=== PATIENT | female | born 1995 | race Caucasian/White ===

== ENCOUNTER 2020-04-11 10:03 | Inpatient (IN) | payer BC ==
[2020-04-08 09:34] VITALS: BMI 42.9
[2020-04-11] MEDS ORDERED: CITRIC ACID-SODIUM CITRATE 15 ML CUP PO ONE (10:18)
[2020-04-11 10:41] LABS: Basophils % (A) 0 %; Eosinophils # (A) 0.1 k/uL (0-0.7); Eosinophils % (A) 1 %; HCT 35.9 % (34.0-46.0); HGB 11.2 gm/dL (11.4-16.0); Hypochromasia Moderate; Lymphocytes # (A) 1.5 k/uL (1.0-4.8); Lymphocytes % (A) 17 %; MCH 23.9 pg (25.0-35.0); MCHC 31.3 g/dL (31.0-37.0); MCV 76.2 fL (80.0-100.0); Mean Platelet Volume 7.3; Microcytosis Slight; Monocytes # (A) 0.4 k/uL (0-1.0); Monocytes % (A) 4 %; Neutrophils # (A) 6.7 k/uL (1.3-7.7); Neutrophils % (A) 77 %; Platelet Count 353 k/uL (150-450); Poikilocytosis Slight; RBC 4.71 m/uL (3.80-5.40); RDW 15.4 % (11.5-15.5); WBC 8.8 k/uL (3.8-10.6)
[2020-04-11] MEDS: LACTATED RINGERS 1,000 ML IV SCH ×2 (11:00→23:14)
[2020-04-11] MEDS ORDERED: OXYTOCIN 10 UNIT/ML 1 ML VIAL ONE (12:00)
[2020-04-11] MEDS ORDERED: KETOROLAC 30 MG/ML 1 ML VIAL ONE (12:00)
[2020-04-11] MEDS ORDERED: PHENYLEPHRINE-0.9% NACL SYG 1 MG/10 ML SYRINGE ONE (12:00)
[2020-04-11] MEDS ORDERED: ONDANSETRON 4 MG/2 ML VIAL ONE (12:00)
[2020-04-11] MEDS ORDERED: MORPHINE SULFATE (PF) 0.3 MG/0.3 ML SYR ONE (12:00)
[2020-04-11] MEDS ORDERED: ACETAMINOPHEN TAB 325 MG TAB PO PRN (12:48)
[2020-04-11] MEDS ORDERED: ZOLPIDEM 5 MG TAB PO PRN (12:48)
[2020-04-11] MEDS ORDERED: diphenhydrAMINE 50 MG/ML 1 ML VIAL IVP PRN ×2 (12:48)
[2020-04-11] MEDS ORDERED: diphenhydrAMINE 25 MG CAP PO PRN (12:48)
[2020-04-11] MEDS ORDERED: NALOXONE 0.4 MG/ML 1 ML VIAL IV PRN (12:48)
[2020-04-11] MEDS ORDERED: METOCLOPRAMIDE 5 MG/ML 2 ML VIAL IVP PRN (12:48)
[2020-04-11] MEDS ORDERED: MEASLES-MUMPS-RUBELLA VACC/PF 12,500 UNIT/0.5 ML VIAL SQ ONE (12:48)
[2020-04-11] MEDS ORDERED: ONDANSETRON 4 MG/2 ML VIAL IVP PRN (12:48)
--- NOTE | 2020-04-11 12:52 | P.HPOB ---
History of Present Illness H&P Date: 04/11/20 Chief Complaint: Intrauterine at term: Macrosomia Patient is a 24-year-old G281 at 30 weeks' gestation with macrosomia. Revealed baby to be greater than 90th percentile and in discussing options with her she has opted for a primary section. Risks/benefits/alternatives to a section were discussed in relation to a vaginal delivery and all questi ons were answered for her prior to proceeding to the operative room. Her Precis course has remained relatively unremarkable. She is a transfer of care at approximately 30 weeks to my service. Pertinent labs A+ blood type are tender was negative, rubella is nonimmune, hepatitis surface antigen was negative and RPR was nonreactive. A category 1 tracing is noted prior to proceeding to the operative room and she is feeling well. She is jewels but not feeling them. Past Medical History Past Medical History: No Reported History Additional Past Medical History / Comment(s): Vaginal delivery. History of Any Multi-Drug Resistant Organisms: None Reported Past Surgical History: No Surgical Hx Reported Additional Past Surgical History / Comment(s): Sedation for oral surgery. Past Anesthesia/Blood Transfusion Reactions: No Reported Reaction Smoking Status: Former smoker - Past Family History Mother Family Medical History: No Reported History Medications and Allergies Home Medications Medication Instructions Recorded Confirmed Type Docusate [Colace] 100 mg PO DAILY 04/08/20 04/11/20 History Iron (Unknown Dose) 1 tab PO DAILY 04/08/20 04/11/20 History Multivit No.40/Iron/Folat1/Dha 1 each PO DAILY 04/08/20 04/11/20 History [Prenate Essential Softgel] [place] (Unknown Dose) 1 tab PO HS 04/08/20 04/11/20 History Allergies Allergy/AdvReac Type Severity Reaction Status Date / Time No Known Allergies Allergy Verified 04/11/20 10:14 Exam Osteopathic Statement: *. No significant issues noted on an osteopathic structural exam other than those noted in the History and Physical/Consult. Vital Signs Temp Pulse Resp BP Pulse Ox 04/11/20 10:14 96.8 F L 117 H 20 139/71 99 Intake and Output 04/10/20 04/11/20 04/11/20 22:59 06:59 14:59 Other: Weight 113.398 kg - OBG Physical Exam Breast: both: normal (no masses) Abdomen: bowel sounds normal, no diffuse tenderness, no bruit present, no guarding noted, no hepatomegaly, no splenomegaly, no mass Vulva: both: normal Vagina: normal moisture, no discharge Cervix: no lesion, no discharge Uterus: normal size, normal contour Adnexa: both: normal Anus/Rectum: normal perianal skin, no rectal mass, no hemorrhoids, heme negative Results Result Diagrams: 04/11/20 10:25 Abnormal Lab Results - Last 24 Hours (Table) 04/11/20 Range/Units 10:25 Hgb 11.2 L (11.4-16.0) gm/dL MCV 76.2 L (80.0-100.0) fL MCH 23.9 L (25.0-35.0) pg
--- NOTE | 2020-04-11 12:54 | P.OP ---
Date of Procedure: 04/11/20 Preoperative Diagnosis: Intrauterine term: Macrosomia Postoperative Diagnosis: Same Procedure(s) Performed: Primary low transverse section Anesthesia: spinal Surgeon: Devin Key Unattended Ground Sensor Specialist #1: Margarita Manzo Estimated Blood Loss (ml): 400 IV fluids (ml): 1,500 Urine output (ml): 300 Pathology: other (Placenta) Condition: stable Disposition: floor Operative Findings: Male scores of 9 and 10 at one and 5 minutes respectively weight was 9 lbs. 14 oz. Description of Procedure: Patient was taken to the operating suite where a spinal anesthetic was found be adequate. She was prepped and draped in the normal sterile fashion and placed in dorsal supine position with leftward tilt. Initially a Pfannenstiel skin incision was made and this incision was then carried through to underlying layer of the fascia with second knife. Fascia was then nicked in the midline and this opening was extended laterally with Eller scissors. Superior and inferior aspect of this incision were then grasped tented up and bluntly and sharply dissected off the rectus muscles. Rectus muscles were then divided midline and sharp dissection through the peritoneum was performed. This opening was then extended superiorly and inferiorly with good visualization of both bowel bladder. Bladder blade was placed in the bladder flap identified. It was entered with Me tzenbaum scissors carried across face uterus with the bladder bluntly dissected out of the operative field. Knife was then used to incise uterus and this opening was fully developed hemostat and extended bluntly. Head was then H medically delivered with notation of large quantity of amniotic fluid almost 2 L. Once head was delivered mouth nares were bulb suctioned anterior and posterior shoulders then delivered gentle downward and upward traction followed by the remainder the baby. Umbilical cord was clamped cut usual fashion an nursery personnel was present to assume care. Placenta was then delivered intact and Pitocin was added to the IV. Uterus was then exteriorized cleared of clots and debris and closed in 2 layers with 0 Vicryl suture. Once excellent hemostasis was obtained blood and debris was suctioned the posterior cul-de-sac and uterus was reinserted into the abdomen. Reevaluation of the incision verifies hemostasis and peritoneal layer was reapproximated with 0 Vicryl suture. Fascial layer was then closed with 0 Vicryl suture. One layer of 3-0 Vicryl was placed in deep subcuticular tissues to reapproximate the skin and close space. Skin was then closed subcuticularly with 4-0 Vicryl. Sponge, lap, needle count all correct 2. Patient was then taken to the recovery room in stable and satisfactory condition.
[2020-04-11] MEDS: SENNOSIDES-DOCUSATE SODIUM 1 EACH TAB PO SCH (20:10)
[2020-04-11] MEDS: diphenhydrAMINE 50 MG CAP PO PRN (22:17)
[2020-04-11] MEDS: KETOROLAC 15 MG/ML 1 ML VIAL IVP PRN (22:17)
[2020-04-12] MEDS: diphenhydrAMINE 50 MG CAP PO PRN (05:23)
[2020-04-12] MEDS: KETOROLAC 15 MG/ML 1 ML VIAL IVP PRN ×2 (05:23→12:19)
--- NOTE | 2020-04-12 06:56 | P.PN ---
Progress Note - Text Progress Note Date: 04/12/20 Postoperative day 1 status post section under spinal anesthesia, and intrathecal morphine given for postoperative analgesia, patient doing well, there is no anesthesia related complications, Patient had no headache, vital signs stable , Assessment and plan= postop day 1 status post , doing well there is no anesthesia related complication.
[2020-04-12 07:14] LABS: Basophils % (A) 0 %; Eosinophils # (A) 0.1 k/uL (0-0.7); Eosinophils % (A) 1 %; HCT 30.4 % (34.0-46.0); Hypochromasia Moderate; Lymphocytes # (A) 1.5 k/uL (1.0-4.8); Lymphocytes % (A) 19 %; MCH 23.7 pg (25.0-35.0); MCHC 30.5 g/dL (31.0-37.0); MCV 77.5 fL (80.0-100.0); Mean Platelet Volume 7.3; Monocytes # (A) 0.4 k/uL (0-1.0); Monocytes % (A) 5 %; Neutrophils # (A) 5.8 k/uL (1.3-7.7); Neutrophils % (A) 73 %; Platelet Count 286 k/uL (150-450); RBC 3.92 m/uL (3.80-5.40); RDW 15.4 % (11.5-15.5); WBC 7.9 k/uL (3.8-10.6)
[2020-04-12 07:28] LABS: HGB 9.3 gm/dL (11.4-16.0)
[2020-04-12] MEDS: SENNOSIDES-DOCUSATE SODIUM 1 EACH TAB PO SCH ×2 (07:37→20:19)
--- NOTE | 2020-04-12 07:53 | P.PNOBGPC ---
Subjective - Subjective Principal diagnosis: Postoperative day 1 Interval history: Patient is doing very well postoperative day 1. She is ambulating, voiding and tolerating her diet. She voices no complaints. Vital signs are stable and afebrile. Heart regular, lungs clear, extremities without pain. Abdomen soft uterus is firm and her incision is intact. All questions are answered for her this morning. Patient reports: Reports appetite normal, Reports voiding normally, Reports pain well controlled, Reports ambulating normally : doing well Objective - Vital Signs Latest vital signs: Vital Signs Temp Pulse Resp BP Pulse Ox 04/12/20 04:00 97.9 F 87 18 108/61 96 04/12/20 00:30 98.2 F 65 18 100/81 97 04/11/20 20:15 98.0 F 78 18 115/64 97 04/11/20 15:53 97.7 F 63 16 107/57 04/11/20 14:59 97.7 F 73 16 118/70 04/11/20 14:29 62 16 107/68 04/11/20 13:59 61 16 111/68 04/11/20 13:44 75 16 107/60 04/11/20 13:29 73 16 109/59 04/11/20 13:14 75 16 114/60 04/11/20 12:59 95.1 F L 68 16 108/56 04/11/20 10:14 96.8 F L 117 H 20 139/71 99 Intake and Output 04/11/20 04/12/20 04/12/20 22:59 06:59 14:59 Intake Total 50 Output Total 2530 2650 450 Balance -2480 -2650 -450 Intake: Oral 50 Output: Urine 2530 2650 450 Uretheral (Mejia) 850 1050 Other: Voiding Method Toilet # Voids 0 1 - Exam Lungs: bilateral: normal Chest: Normal S1, Normal S2 Extremities: Present: normal Abdomen: Present: normal appearance, soft. Absent: distention, tenderness Incision: Present: normal, dry, intact Uterus: Present: normal, firm - Labs Labs: Abnormal Lab Results - Last 24 Hours (Table) 04/11/20 04/12/20 Range/Units 10:25 06:07 Hgb 11.2 L 9.3 L D (11.4-16.0) gm/dL Hct 30.4 L (34.0-46.0) % MCV 76.2 L 77.5 L (80.0-100.0) fL MCH 23.9 L 23.7 L (25.0-35.0) pg MCHC 30.5 L (31.0-37.0) g/dL
[2020-04-12 15:55] VITALS: RESP 16
[2020-04-12] MEDS: IBUPROFEN 600 MG TAB PO PRN ×2 (17:12→23:32)
[2020-04-12] MEDS: HYDROcodone/APAP 7.5-325MG 1 EACH TAB PO PRN (20:19)
[2020-04-12] MEDS: LACTATED RINGERS 1,000 ML IV SCH ×3 (21:13→21:14)
[2020-04-13] MEDS: HYDROcodone/APAP 7.5-325MG 1 EACH TAB PO PRN ×2 (01:44→08:05)
[2020-04-13] MEDS: IBUPROFEN 600 MG TAB PO PRN (05:22)
[2020-04-13] MEDS: SENNOSIDES-DOCUSATE SODIUM 1 EACH TAB PO SCH (08:06)
--- NOTE | 2020-04-13 08:18 | P.DS ---
Providers Date of admission: 04/11/20 10:03 Expected date of discharge: 04/13/20 Attending physician: Devin Key Primary care physician: Stated None Hospital Course: Patient is doing very well post op day 2. She is ambulating, voiding and tolerating her diet. She voices no complaints. Vital signs are stable and afebrile. Heart regular, lungs clear, extremities without pain. Her abdomen is soft positive bowel sounds are noted and her incision is intact. We'll plan her to follow up with me in 1 week when we will remove her dressing. Prescription for [place] and Motrin reported to the pharmacy. All other questions are answered for her prior to her discharge. She is stable for discharge this time. Patient Condition at Discharge: Good Plan - Discharge Summary Discharge Rx Participant: No New Discharge Prescriptions: New Ibuprofen [Motrin] 600 mg PO Q6HR PRN #30 tab PRN Reason: Pain HYDROcodone/APAP 5-325MG [[place] 5-325] 1 tab PO Q4HR PRN #30 tab PRN Reason: Pain No Action Docusate [Colace] 100 mg PO DAILY [place] (Unknown Dose) 1 tab PO HS Multivit No.40/Iron/Folat1/Dha [Prenate Essential Softgel] 1 each PO DAILY [place] (Unknown Dose) 1 tab PO DAILY Discharge Medication List Docusate [Colace] 100 mg PO DAILY 04/08/20 [History] [place] (Unknown Dose) 1 tab PO DAILY 04/08/20 [History] Multivit No.40/Iron/Folat1/Dha [Prenate Essential Softgel] 1 each PO DAILY 04/08/20 [History] [place] (Unknown Dose) 1 tab PO HS 04/08/20 [History] HYDROcodone/APAP 5-325MG [[place] 5-325] 1 tab PO Q4HR PRN #30 tab 04/13/20 [Rx] Ibuprofen [Motrin] 600 mg PO Q6HR PRN #30 tab 04/13/20 [Rx] Follow up Appointment(s)/Referral(s): Devin Key DO [Doctor of Osteopathic Medicine] - 1 Week Activity/Diet/Wound Care/Special Instructions: Ting, limit stairs and driving, and pelvic rest. If any high temperatures, he kathy bleeding, or severe pain call my office Discharge Disposition: HOME SELF-CARE
[2020-04-13 08:27] VITALS: BP 115/68; PULSE 82; TEMP 98.2
== END 2020-04-13 11:10 | disposition home or self-care (01) | DRG 788 ==
LOC: 4FBP 10:03
PROVIDERS: ADMIT Obstetrics & Gynecology; ATTEND Obstetrics & Gynecology
PROC: 10D00Z1 Extraction of Products of Conception, Low, Open Approach (ICD-10-PCS; principal; 2020-04-11 12:00)
DX: O36.63X0 Maternal care for excessive fetal growth, third trimester, not applicable or unspecified (principal); O33.5XX0 Maternal care for disproportion due to unusually large fetus, not applicable or unspecified; Z3A.39 39 weeks gestation of pregnancy; Z37.0 Single live birth; Z87.891 Personal history of nicotine dependence
CPT/HCPCS: 85025; 86850; 86900; 86901